=== PATIENT | male | born 2000 | race Caucasian/White ===

== ENCOUNTER 2021-06-23 18:09 | Emergency (ER) | payer OTHER ==
[2021-06-23 20:07] VITALS: BP 130/90; PULSE 89; RESP 20; TEMP 97.7
--- NOTE | 2021-06-23 20:56 | XR ---
EXAMINATION TYPE: XR chest 2V DATE OF EXAM: 06/23/2021 COMPARISON: NONE HISTORY: Fever and cough TECHNIQUE: FINDINGS: Heart and mediastinum are normal. Lungs are clear. Diaphragm is normal. Bony thorax is inta ct. IMPRESSION: Normal chest.
[2021-06-23] MEDS ORDERED: predniSONE 20 MG TAB PO STA (22:44)
--- NOTE | 2021-06-23 22:44 | ED ---
URI HPI - General Chief Complaint: Upper Respiratory Infection Stated Complaint: SOB, chest tightness Time Seen by Provider: 06/23/21 21:43 Source: patient, family Mode of arrival: ambulatory Limitations: no limitations - History of Present Illness Initial Comments: This patient is 21-year-old man who presents with constellation of upper respiratory type symptoms that have started yesterday afternoon and worsening this evening. He has had nasal congestion and rhinorrhea, cough, chest tightness. He he believes there may have been low-grade fever but had not taken temperature. Patient has not had hemoptysis. No real dyspnea. MD Complaint: cough, sore throat, rhinorrhea, nasal congestion Onset/Timin -: days(s) Severity: mild Quality: other (Tight) Consistency: constant Improves With: nothing Worsens With: nothing Associated Symptoms: rhinorrhea, nasal congestion, sore throat, cough - Related Data Home Medications Medication Instructions Recorded Confirmed Lurasidone [Latuda] 20 mg PO HS 06/23/21 06/23/21 Previous Rx's Medication Instructions Recorded Albuterol Inhaler [Ventolin Hfa 2 puff INHALATION Q4HR PRN #8 gm 06/23/21 Inhaler] Promethazine 6.25MG/5Ml [Phenergan 5 ml PO Q4HR PRN #120 ml 06/23/21 Syrup] predniSONE [Deltasone] 20 mg PO BID #8 tab 06/23/21 Allergies Allergy/AdvReac Type Severity Reaction Status Date / Time Penicillins Allergy Unknown Verified 06/23/21 22:34 Review of Systems ROS Statement: Those systems with pertinent positive or pertinent negative responses have been documented in the HPI. ROS Other: All systems not noted in ROS Statement are negative. Constitutional: Denies: fever, chills ENT: Reports: as per HPI, throat pain, congestion. Denies: ear pain Respiratory: Reports: as per HPI, cough. Denies: dyspnea, hemoptysis Cardiovascular: Reports: as per HPI, chest pain. Denies: palpitations, orthopnea, edema, syncope Gastrointestinal: Denies: abdominal pain, vomiting, diarrhea Genitourinary: Denies: dysuria, hematuria Skin: Denies: rash Neurological: Denies: headache, weakness, numbness Past Medical History Past Medical History: No Reported History History of Any Multi-Drug Resistant Organisms: None Reported Past Surgical History: Adenoidectomy, Tonsillectomy Past Psychological History: No Psychological Hx Reported Smoking Status: Never smoker Past Alcohol Use History: None Reported Past Drug Use History: Marijuana General Exam Limitations: no limitations General appearance: alert, in no apparent distress Head exam: Present: atraumatic, normocephalic Eye exam: Present: normal appearance. Absent: scleral icterus, conjunctival injection ENT exam: Present: mucous membranes moist, other (Mild injection of the pharynx. Uvula is midline no evidence of peritonsillar abscess.) Neck exam: Present: normal inspection, full ROM, lymphadenopathy. Absent: tenderness, meningismus Respiratory exam: Present: wheezes (Trace expiratory wheeze). Absent: respiratory distress, rales, rhonchi, stridor Cardiovascular Exam: Present: regular rate, normal rhythm, normal heart sounds. Absent: systolic murmur, diastolic murmur, rubs, gallop GI/Abdominal exam: Present: soft. Absent: distended, tenderness, guarding, rebound, rigid, mass Extremities exam: Present: normal inspection, normal capillary refill. Absent: pedal edema, calf tenderness Back exam: Present: normal inspection Neurological exam: Present: alert Skin exam: Present: warm, dry, intact, normal color. Absent: rash Course Vital Signs 06/23/21 20:02 Temperature 97.7 F Pulse Rate 89 Respiratory 20 Rate Blood Pressure 130/90 O2 Sat by Pulse 96 Oximetry Medical Decision Making - Lab Data Lab Results 06/23/21 06/23/21 06/23/21 Range/Units 20:13 22:10 22:22 Coronavirus (PCR) Not Detected (Not Detectd) Influenza Type A RNA Not Detected (Not Detectd) Influenza Type B (PCR) Not Detected (Not Detectd) Group A Strep Rapid Negative (Negative) Disposition Clinical Impression: Bronchitis Disposition: HOME SELF-CARE Condition: Good Instructions (If sedation given, give patient instructions): Upper Respiratory Infection (ED) Prescriptions: predniSONE [Deltasone] 20 mg PO BID #8 tab Promethazine 6.25MG/5Ml [Phenergan Syrup] 5 ml PO Q4HR PRN #120 ml PRN Reason: Cough Albuterol Inhaler [Ventolin Hfa Inhaler] 2 puff INHALATION Q4HR PRN #8 gm PRN Reason: Wheezing Is patient prescribed a controlled substance at d/c from ED?: No Referrals: Dariela Rock MD [Primary Care Provider] - 1-2 days
== END 2021-06-23 23:27 | disposition home or self-care (01) ==
LOC: EC 18:09
DX: J40 Bronchitis, not specified as acute or chronic (principal); Z20.822 Contact with and (suspected) exposure to COVID-19; F12.90 Cannabis use, unspecified, uncomplicated
CPT/HCPCS: 71046; 87081; 87430; 87502; 87635; 99285

== ENCOUNTER 2022-09-21 14:55 | Emergency (ER) | payer OTHER ==
[2022-09-21 15:01] VITALS: TEMP 97.9
--- NOTE | 2022-09-21 15:51 | ED ---
Upper Extremity HPI - General Chief Complaint: Extremity Injury, Lower Stated Complaint: infected finger Time Seen by Provider: 09/21/22 15:27 Source: patient Mode of arrival: ambulatory Limitations: no limitations - History of Present Illness Initial Comments: Patient is a 22-year-old male presented to the emergency room with complaints of pain and swelling to his left middle finger. He reports that it was crushed between boxes at work approximately 5 days ago and has had progressive pain and swelling. He is unsure when the white area of the swelling developed dad is lateral to his nail. He has not attempted to express fluid from the area. He is not currently on any antibiotics. He denies any other complaints or concerns including any chest pain, shortness of breath, nausea, vomiting, fevers or chills. He denies any significant past medical history. - Related Data Home Medications Medication Instructions Recorded Confirmed Lurasidone [Latuda] 20 mg PO HS 06/23/21 06/23/21 Previous Rx's Medication Instructions Recorded Albuterol Inhaler [Ventolin Hfa 2 puff INHALATION Q4HR PRN #8 gm 06/23/21 Inhaler] Promethazine 6.25MG/5Ml [Phenergan 5 ml PO Q4HR PRN #120 ml 06/23/21 Syrup] predniSONE [Deltasone] 20 mg PO BID #8 tab 06/23/21 Sulfamethox-Tmp 800-160Mg [Bactrim 1 tab PO Q12HR 7 Days #14 tab 09/21/22 DS 800-160 mg] Allergies Allergy/AdvReac Type Severity Reaction Status Date / Time Penicillins Allergy Unknown Verified 09/21/22 15:01 Review of Systems ROS Statement: Those systems with pertinent positive or pertinent negative responses have been documented in the HPI. ROS Other: All systems not noted in ROS Statement are negative. Past Medical History Past Medical History: No Reported History History of Any Multi-Drug Resistant Organisms: None Reported Past Surgical History: Adenoidectomy, Tonsillectomy Past Psychological History: No Psychological Hx Reported Smoking Status: Never smoker Past Alcohol Use History: None Reported Past Drug Use History: Marijuana General Exam - General Exam Comments Initial Comments: GENERAL: No acute distress, well developed, well nourished. HEENT: Normocephalic, atraumatic. Pupils equal, round, reactive to light. Moist mucous membranes. LUNGS: No respiratory distress or use of accessory muscles. HEART: Regular rate. ABDOMEN: Non-distended. BACK: Normal inspection. EXTREMITIES: Left middle finger with erythema and edema to the distal tip mild swelling without erythema near to the PIP joint. Range of motion limited due to edema. No deformity noted. Remainder of left hand normal. NEUROLOGIC: Alert & oriented x 3. CN II-XII grossly intact. PSYCHIATRIC: Normal affect and behavior. DERMATOLOGIC: Erythema with small area of exudate lateral to left middle finger nailbed otherwise skin intact, without rashes or lesions noted. Limitations: no limitations Course Vital Signs 09/21/22 09/21/22 14:57 16:30 Temperature 97.9 F Pulse Rate 73 74 Respiratory 22 18 Rate Blood Pressure 135/91 124/74 O2 Sat by Pulse 98 99 Oximetry Procedures - Incision & Drainage Consent Obtained: verbal consent Site: hand (Left middle finger distal and) I&D Cleaning Method: Chloroprep Scalpel Used: #11 I&D Drainage Obtained: Pus, Blood Culture Obtained?: No Patient Tolerated Procedure: well, no complications Medical Decision Making - Medical Decision Making Was pt. sent in by a medical professional or institution (, PA, ENGRAVER STEEL PLATE, urgent care, hospital, or longterm...) When possible be specific @ -No Did you speak to anyone other than the patient for history (EMS, parent, family, police, friend...)? What history was obtained from this source @ -No Did you review nursing and triage notes (agree or disagree)? Why? @ -I reviewed and agree with nursing and triage notes Were old charts reviewed (outside hosp., previous admission, EMS record, old EKG, old radiological studies, urgent care reports/EKG's, longterm records)? Report findings @ -No old charts were reviewed Differential Diagnosis (chest pain, altered mental status, abdominal pain women, abdominal pain men, vaginal bleeding, weakness, fever, dyspnea, syncope, headache, dizziness, GI bleed, back pain, seizure, CVA, palpatations, mental health, musculoskeletal)? @ -Differential Musculoskeletal Muscular strain, contusion, ligament sprain, fracture, arthritis, septic arthritis, bursitis, cellulitis, muscle spasm, nerve compression, DVT, arterial occlusion, herpes zoster, electrolyte abnormality, tumor.... This is not meant to be in all inclusive list EKG interpreted by me (3pts min.). @ -None done X-rays interpreted by me (1pt min.). @ -X-ray left middle finger: Mild soft tissue swelling indicative of cellulitis no fracture or dislocation. CT interpreted by me (1pt min.). @ -None done U/S interpreted by me (1pt. min.). @ -None done What testing was considered but not performed or refused? (CT, X-rays, U/S, labs)? Why? @ -None What meds were considered but not given or refused? Why? @ -None Did you discuss the management of the patient with other professionals (professionals i.e. , PA, ENGRAVER [employer]ATE, lab, RT, psych nurse, social welfare administrator, roller skate assembler, teacher, booking police officer, keycase assembler)? Give summary @ -No Was smoking cessation discussed for >3mins.? @ -No Was critical care preformed (if so, how long)? @ -No Were there social determinants of health that impacted care today? How? (Homelessness, low income, unemployed, alcoholism, drug addiction, transportation, low edu. Level, literacy, decrease access to med. care, shelter, rehab)? @ -No Was there de-escalation of care discussed even if they declined (Discuss DNR or withdrawal of care, Hospice)? DNR status @ -No What co-morbidities impacted this encounter? (DM, HTN, Smoking, COPD, CAD, Cancer, CVA, ARF, Chemo, Hep., AIDS, mental health diagnosis, sleep apnea, morbid obesity)? @ -None Was patient admitted / discharged? Hospital course, mention meds given and route, prescriptions, significant lab abnormalities, going to OR and other pertinent info. @ - 22-year-old male presented to the emergency room with complaints of pain and swelling to his left middle finger. He reports that it was crushed between boxes at work approximately 5 days ago and has had progressive pain and swelling. Erythema noted to distal tip with evidence of paronychia. Will obtain x-ray to reevaluate fracture after trauma. X-ray negative for fracture or dislocation. Incision and drainage completed patient tolerated well. Dressing applied. Wound care discussed with patient. Advised continued expressing of drainage regularly. Will place on antibiotic therapy. Penicillin ALLERGY noted. Questions and concerns answered. Return parameters to the emergency room discussed. Will discharge home in stable condition on oral antibiotic therapy for treatment of paronychia of the left middle finger advising follow-up with primary care provider. Undiagnosed new problem with uncertain prognosis? @ -No Drug Therapy requiring intensive monitoring for toxicity (Heparin, Nitro, Insulin, Cardizem)? @ -No Were any procedures done? @ -Yes incision and drainage of left middle finger, see procedures for details Diagnosis/symptom? @ -Paronychia of left middle finger Acute, or Chronic, or Acute on Chronic? @ -Acute Uncomplicated (without systemic symptoms) or Complicated (systemic symptoms)? @ -Uncomplicated Side effects of treatment? @ -No Exacerbation, Progression, or Severe Exacerbation? @ -No Poses a threat to life or bodily function? How? (Chest pain, [place], [place], pneumonia, PE, COPD, DKA, ARF, appy, cholecystitis, CVA, Diverticulitis, Homicidal, Suicidal, threat to staff... and all critical care pts) @ -No Case discussed with Dr. Lr. - Radiology Data Radiology results: report reviewed, image reviewed Disposition Clinical Impression: Paronychia of left middle finger Disposition: HOME SELF-CARE Condition: Stable Instructions (If sedation given, give patient instructions): Paronychia (ED) Additional Instructions: Complete course of antibiotic as prescribed. Continue to keep a dressing on the affected finger and drain as needed. Please follow-up with your primary care provider. Please return to the Emergency Department if symptoms worsen or any other concerns. Prescriptions: Sulfamethox-Tmp 800-160Mg [Bactrim DS 800-160 mg] 1 tab PO Q12HR 7 Days #14 tab Is patient prescribed a controlled substance at d/c from ED?: No Referrals: None,Stated [Primary Care Provider] - 1-2 days Time of Disposition: 16:22
--- NOTE | 2022-09-21 16:05 | XR ---
EXAMINATION TYPE: XR finger LT DATE OF EXAM: 09/21/2022 COMPARISON: NONE HISTORY: Pain TECHNIQUE: Three views are submitted. FINDINGS: The osseous structures are intact. The joint spaces are preserved and there is no acute fracture or dislocation. Soft tissue edema distal margin of the third digit. No destructive changes. IMPRESSION: 1. No evidence to suggest osteomyelitis. Correlate for soft tissue edema or cellulitis third digit.
[2022-09-21] MEDS ORDERED: ACET/COD 300 MG/30 MG STARTER PACK 6 TAB BTL PO STA (16:20)
[2022-09-21 16:31] VITALS: BP 124/74; PULSE 74; RESP 18
== END 2022-09-21 16:32 | disposition home or self-care (01) ==
LOC: EC 14:55
DX: L03.012 Cellulitis of left finger (principal); F12.90 Cannabis use, unspecified, uncomplicated; Z88.0 Allergy status to penicillin
CPT/HCPCS: 10060; 99283

== ENCOUNTER 2024-05-09 16:31 | Emergency (ER) | payer OTHER ==
[2024-05-09 16:52] VITALS: RESP 18
--- NOTE | 2024-05-09 17:10 | ED ---
Skin/Abscess/FB HPI - General Chief complaint: Skin/Abscess/Foreign Body Stated complaint: RT LEG HOT AND RED Time Seen by Provider: 05/09/24 16:53 Source: patient, RN notes reviewed, old records reviewed Mode of arrival: ambulatory Limitations: no limitations - History of Present Illness Initial comments: This is a 24-year-old male to the ER for evaluation of lower extremity pain right lower extremity pain and swelling right lower extremity pain swelling and edema. Patient has some itching at that lower extremity and then noticed some redness warmth increasing which is beginning progressively worse for a few days now. No fevers MD complaint: rash, discoloration, other (Redness warmth right lower extremity) -: days(s) Location: RLE Severity scale (1-10): 3 Consistency: constant Improves with: none Worsens with: none Context: none Associated symptoms: denies other symptoms Treatments Prior to Arrival: none - Related Data Home Medications Medication Instructions Recorded Confirmed Lurasidone [Latuda] 20 mg PO HS 06/23/21 06/23/21 Previous Rx's Medication Instructions Recorded Albuterol Inhaler [Ventolin Hfa 2 puff INHALATION Q4HR PRN #8 gm 06/23/21 Inhaler] Promethazine 6.25MG/5Ml [Phenergan 5 ml PO Q4HR PRN #120 ml 06/23/21 Syrup] predniSONE [Deltasone] 20 mg PO BID #8 tab 06/23/21 Sulfamethox-Tmp 800-160Mg [Bactrim 1 tab PO Q12HR 7 Days #14 tab 09/21/22 DS 800-160 mg] Cephalexin [Keflex] 500 mg PO Q6HR #40 cap 05/09/24 Sulfamethox-Tmp 800-160Mg [Bactrim 2 tab PO BID #40 tab 05/09/24 DS 800-160 mg] Allergies Allergy/AdvReac Type Severity Reaction Status Date / Time Penicillins Allergy Unknown Verified 05/09/24 16:49 Review of Systems ROS Statement: Those systems with pertinent positive or pertinent negative responses have been documented in the HPI. ROS Other: All systems not noted in ROS Statement are negative. Past Medical History Past Medical History: No Reported History History of Any Multi-Drug Resistant Organisms: None Reported Past Surgical History: Adenoidectomy, Tonsillectomy Past Psychological History: No Psychological Hx Reported Smoking Status: Never smoker Past Alcohol Use History: None Reported Past Drug Use History: Marijuana General Exam Limitations: no limitations General appearance: alert, in no apparent distress Head exam: Present: atraumatic, normocephalic, normal inspection Eye exam: Present: normal appearance, PERRL, EOMI. Absent: scleral icterus, conjunctival injection, periorbital swelling ENT exam: Present: normal exam, mucous membranes moist Neck exam: Present: normal inspection. Absent: tenderness, meningismus, lymphadenopathy Respiratory exam: Present: normal lung sounds bilaterally. Absent: respiratory distress, wheezes, rales, rhonchi, stridor Cardiovascular Exam: Present: regular rate, normal rhythm, normal heart sounds. Absent: systolic murmur, diastolic murmur, rubs, gallop, clicks GI/Abdominal exam: Present: soft, normal bowel sounds. Absent: distended, tenderness, guarding, rebound, rigid Extremities exam: Present: normal inspection, full ROM, normal capillary refill. Absent: tenderness, pedal edema, joint swelling, calf tenderness Back exam: Present: normal inspection Neurological exam: Present: alert, oriented X3, CN II-XII intact Psychiatric exam: Present: normal affect, normal mood Skin exam: Present: warm, dry, intact, normal color. Absent: rash Course Vital Signs 05/09/24 16:49 Temperature 98.8 F Pulse Rate 79 Respiratory 18 Rate Blood Pressure 127/84 O2 Sat by Pulse 97 Oximetry - Reevaluation(s) Reevaluation #1: 05/09/24 17:09 Medical records reviewed Reevaluation #2: 05/09/24 17:10 Patient symptoms unchanged Reevaluation #3: 05/09/24 17:10 Patient informed of results and questions answered Reevaluation #4: Was pt. sent in by a medical professional or institution (, PA, MARINE PIPEFITTER HELPER, urgent care, hospital, or group home...) When possible be specific @ -no Did you speak to anyone other than the patient for history (EMS, parent, family, police, friend...)? What history was obtained from this source @ -no Did you review nursing and triage notes (agree or disagree)? Why? @ -agree Are old charts reviewed (outside hosp., previous admission, EMS record, old EKG, old radiological studies, urgent care reports/EKG's, group home records)? Report findings @ -yes Differential Diagnosis (chest pain, altered mental status, abdominal pain women, abdominal pain men, vaginal bleeding, weakness, fever, dyspnea, syncope, headache, dizziness, GI bleed, back pain, seizure, CVA, palpatations, mental health, musculoskeletal)? @ -prior EKG interpreted by me (3pts min.). @ -yes X-rays interpreted by me (1pt min.). @ -yes negative for acute disease CT interpreted by me (1pt min.). @ -no U/S interpreted by me (1pt. min.). @ -no What testing was considered but not performed or refused? (CT, X-rays, U/S, labs)? Why? @ -none What meds were considered but not given or refused? Why? @ -none Did you discuss the management of the patient with other professionals (professionals i.e. , PA, MARINE PIPEFITTER HELPER, lab, RT, psych nurse, social service manager, buffet runner, teacher, community arts officer, bilingual case manager)? Give summary @ -no Was smoking cessation discussed for >3mins.? @ -no Was critical care preformed (if so, how long)? @ -no Were there social determinants of health that impacted care today? How? (Homelessness, low income, unemployed, alcoholism, drug addiction, transportation, low edu. Level, literacy, decrease access to med. care, senior living, rehab)? @ -none Was there de-escalation of care discussed even if they declined (Discuss DNR or withdrawal of care, Hospice)? DNR status @ -no What co-morbidities impacted this encounter? (DM, HTN, Smoking, COPD, CAD, Cancer, CVA, ARF, Chemo, Hep., AIDS, mental health diagnosis, sleep apnea, morbid obesity)? @ -none Was patient admitted / discharged? Hospital course, mention meds given and route, prescriptions, significant lab abnormalities, going to OR and other pertinent info. @ - Undiagnosed new problem with uncertain prognosis? @ -no Drug Therapy requiring intensive monitoring for toxicity (Heparin, Nitro, Insulin, Cardizem)? @ -no Were any procedures done? @ -no Diagnosis/symptom? @ - Acute, or Chronic, or Acute on Chronic? @ -Acute Uncomplicated (without systemic symptoms) or Complicated (systemic symptoms)? @ -Complicated Side effects of treatment? @ -no Exacerbation, Progression, or Severe Exacerbation? @ -exacerbation Poses a threat to life or bodily function? How? (Chest pain, [place], [place], pneumonia, PE, COPD, DKA, ARF, appy, cholecystitis, CVA, Diverticulitis, Homicidal, Suicidal, threat to staff... and all critical care pts) @ -yes Medical Decision Making - Medical Decision Making 24 male will be placed on antibiotics for right lower extremity cellulitis Disposition Clinical Impression: Cellulitis of right leg Disposition: HOME SELF-CARE Condition: Good Instructions (If sedation given, give patient instructions): Cellulitis (ED) Prescriptions: Sulfamethox-Tmp 800-160Mg [Bactrim DS 800-160 mg] 2 tab PO BID #40 tab Cephalexin [Keflex] 500 mg PO Q6HR #40 cap Is patient prescribed a controlled substance at d/c from ED?: No Referrals: Dwight Alvarado MD [Primary Care Provider] - 1-2 days Time of Disposition: 17:00
[2024-05-09] MEDS: CEPHALEXIN 500 MG CAP PO STA (17:28)
[2024-05-09] MEDS: SULFAMETH-TMP DS STARTER PACK 2 TAB BTL PO STA (17:29)
[2024-05-09] MEDS: SULFAMETHOX-TMP 800-160MG 1 EACH TAB PO STA (17:29)
[2024-05-09] MEDS: CEPHALEXIN 500MG STARTER PACK 4 CAP BTL PO STA (17:29)
[2024-05-09 17:47] VITALS: BP 125/86; PULSE 77; TEMP 98.6
== END 2024-05-09 18:57 | disposition home or self-care (01) ==
LOC: EC 16:31
DX: L03.115 Cellulitis of right lower limb (principal); Z88.0 Allergy status to penicillin; Z90.89 Acquired absence of other organs
CPT/HCPCS: 99283

== ENCOUNTER 2024-05-10 09:08 | Emergency (ER) | payer OTHER ==
[2024-05-10 09:30] VITALS: RESP 18; TEMP 98
--- NOTE | 2024-05-10 09:58 | ED ---
Allergic Reaction HPI - General Chief complaint: Allergic Reaction Stated complaint: alleric reaction Time Seen by Provider: 05/10/24 09:15 Source: patient, RN notes reviewed Mode of arrival: ambulatory Limitations: no limitations - History of Present Illness Initial Comments: This is a 24-year-old male who presents to the emergency department for concerns of an allergic reaction. Patient was evaluated here yesterday for cellulitis to the right lower extremity. He was started on Bactrim and Keflex. States that today he started develop itching and a scratchy throat and is concerned about an allergic reaction to these medications. Denies any rashes, states that he just feels itchy all over. MD Complaint: allergic reaction - Related Data Home Medications Medication Instructions Recorded Confirmed Lurasidone [Latuda] 20 mg PO HS 06/23/21 06/23/21 Previous Rx's Medication Instructions Recorded Albuterol Inhaler [Ventolin Hfa 2 puff INHALATION Q4HR PRN #8 gm 06/23/21 Inhaler] Promethazine 6.25MG/5Ml [Phenergan 5 ml PO Q4HR PRN #120 ml 06/23/21 Syrup] predniSONE [Deltasone] 20 mg PO BID #8 tab 06/23/21 Sulfamethox-Tmp 800-160Mg [Bactrim 1 tab PO Q12HR 7 Days #14 tab 09/21/22 DS 800-160 mg] Cephalexin [Keflex] 500 mg PO Q6HR #40 cap 05/09/24 Sulfamethox-Tmp 800-160Mg [Bactrim 2 tab PO BID #40 tab 05/09/24 DS 800-160 mg] clindamycin HCL 300 mg PO QID 10 Days #40 capsule 05/10/24 diphenhydrAMINE [Benadryl] 50 mg PO QID PRN #30 capsule 05/10/24 predniSONE 50 mg PO DAILY 4 Days #4 tab 05/10/24 Allergies Allergy/AdvReac Type Severity Reaction Status Date / Time Penicillins Allergy Unknown Verified 05/10/24 09:30 Review of Systems ROS Statement: Those systems with pertinent positive or pertinent negative responses have been documented in the HPI. ROS Other: All systems not noted in ROS Statement are negative. Past Medical History Past Medical History: No Reported History History of Any Multi-Drug Resistant Organisms: None Reported Past Surgical History: Adenoidectomy, Tonsillectomy Past Psychological History: No Psychological Hx Reported Smoking Status: Never smoker Past Alcohol Use History: None Reported Past Drug Use History: Marijuana General Exam - General Exam Comments Initial Comments: Visual Physical Exam Vital signs reviewed General: Well-appearing, nontoxic, no acute distress. Head: Normocephalic, atraumatic Eyes: PERRLA, EOMI ENT: Airway patent Chest: Nonlabored breathing Skin: No visual rash, normal skin tone Neuro: Alert and oriented 3 Musculoskeletal: No gross abnormalities Limitations: no limitations General appearance: alert, in no apparent distress Head exam: Present: atraumatic, normocephalic, normal inspection Respiratory exam: Present: normal lung sounds bilaterally. Absent: respiratory distress, wheezes, rales, rhonchi, stridor Cardiovascular Exam: Present: regular rate, normal rhythm, normal heart sounds. Absent: systolic murmur, diastolic murmur, rubs, gallop, clicks Neurological exam: Present: alert, oriented X3, CN II-XII intact Psychiatric exam: Present: normal affect, normal mood Skin exam: Present: other (Tender erythematous lumps/blotches on the right lower extremity. 2+ DP and PT pulses) Course Vital Signs 05/10/24 05/10/24 05/10/24 09:28 10:53 12:24 Temperature 98 F Pulse Rate 72 67 Respiratory 18 18 18 Rate Blood Pressure 152/79 124/74 O2 Sat by Pulse 98 98 Oximetry Medical Decision Making - Medical Decision Making This is a 24 year old male who presents to the emergency department for concerns of an allergic reaction. Was pt. sent in by a medical professional or institution? @ -No Did you speak to anyone other than the patient for history? @ -No Did you review nursing and triage notes? @ -Yes, and I agree, it is accurate with regards to the patient's symptoms. Were old charts reviewed? @ -No Differential Diagnosis? @ -Allergic reaction, dermatitis, electrolyte abnormality, strep pharyngitis, this is not meant to be an all-inclusive list. EKG interpreted by me (3pts min.)? @ -Not obtained X-rays interpreted by me (1pt min.)? @ -Not obtained CT interpreted by me (1pt min.)? @ -Not obtained U/S interpreted by me (1pt. min.)? @ -Not obtained What testing was considered but not performed? (CT, X-rays, U/S, labs)? Why? @ -None What meds were considered but not given? Why? @ -None Did you discuss the management of the patient with other professionals? @ -No Did you reconcile home meds? @ -No Was smoking cessation discussed for >3mins.? @ -No Was critical care preformed (if so, how long)? @ -No Were there social determinants of health that impacted care today? How? (Homelessness, low income, unemployed, alcoholism, drug addiction, transportation, low edu. Level, literacy, decrease access to med. care, [facility], rehab)? @ -No Was there de-escalation of care discussed even if they declined? (Discuss DNR or withdrawal of care, Hospice)? @ -No What co-morbidities impacted this encounter? (DM, HTN, Smoking, COPD, CAD, Cancer, CVA, Hep., AIDS, mental health diagnosis, sleep apnea, morbid obesity)? @ -None Was patient admitted / discharged? @ -Discharged. Patient treated with an allergy cocktail consisting of Solu- Medrol, Benadryl, and famotidine with improvement in symptoms. He was started on Bactrim and Keflex yesterday for the cellulitis. Unclear which of these may have contributed to his symptoms. Advised he discontinue both of these medications and a prescription for clindamycin was provided to be taken over the next 10 days instead. Prednisone and Benadryl prescribed to take for the next couple of days to further help with the allergic reaction. Advised follow-up with his PCP for reevaluation. Patient discharged home in stable condition. Case discussed with ED attending Dr. Bauer. Return precautions reviewed in depth, the patient is instructed to return to the emergency department with any new, worsening, or concerning symptoms. Patient verbalized understanding. Undiagnosed new problem with uncertain prognosis? @ -None Drug Therapy requiring intensive monitoring for toxicity (Heparin, Nitro, Insulin, Cardizem)? @ -None Were any procedures done? @ -None Diagnosis/symptom? @ -Allergic reaction, lower extremity cellulitis Acute, or Chronic, or Acute on Chronic? @ -Acute Uncomplicated (without systemic symptoms) or Complicated (systemic symptoms)? @ -Uncomplicated Side effects of treatment? @ -None Exacerbation, Progression, or Severe Exacerbation] @ -Not applicable Poses a threat to life or bodily function? @ -No Disposition Clinical Impression: Cellulitis, Allergic reaction to drug Disposition: HOME SELF-CARE Instructions (If sedation given, give patient instructions): Cellulitis (ED), General Allergic Reaction (ED) Additional Instructions: Return to the emergency department with any new, worsening, or concerning symptoms. Stop the antibiotics you were prescribed yesterday and begin taking the new antibiotic as prescribed for 10 days. Take the prednisone daily for 4 days, with your first dose beginning tomorrow, as you received a dose in the emergency department today. Take the Benadryl up to 4 times daily for itching and to further treat the reaction. Follow up with your primary care provider in 1-2 days. Prescriptions: diphenhydrAMINE [Benadryl] 50 mg PO QID PRN #30 capsule PRN Reason: Itching clindamycin HCL 300 mg PO QID 10 Days #40 capsule predniSONE 50 mg PO DAILY 4 Days #4 tab Is patient prescribed a controlled substance at d/c from ED?: No Referrals: Dwight Alvarado MD [Primary Care Provider] - 1-2 days Time of Disposition: 12:03
[2024-05-10] MEDS: methylPREDNISolone SOD SUCCI 125 MG/2 ML VIAL IM ONE (11:03)
[2024-05-10] MEDS: diphenhydrAMINE 50 MG/ML 1 ML VIAL IM STA (11:03)
[2024-05-10] MEDS: FAMOTIDINE 20 MG TAB PO STA (11:03)
[2024-05-10 12:27] VITALS: BP 124/74; PULSE 67
== END 2024-05-10 12:27 | disposition home or self-care (01) ==
LOC: EC 09:08
DX: L03.115 Cellulitis of right lower limb (principal); T36.1X5A Adverse effect of cephalosporins and other beta-lactam antibiotics, initial encounter; Z88.0 Allergy status to penicillin
CPT/HCPCS: 99283; 96372 ×2; J1200; J2919